=== PATIENT | male | born 1980 | race Caucasian/White ===

== ENCOUNTER → 2024-05-25 | Outpatient (CLI) | payer BC ==
--- NOTE | 2024-05-25 08:00 | US ---
EXAMINATION TYPE: US abdomen complete DATE OF EXAM: 05/25/2024 COMPARISON: NONE CLINICAL INDICATION: Male, 43 years old with history of R10.9 Unspecified abd pain; Intermittent RUQ pain since february; Patient denies any other signs, symptoms, or relevant history TECHNIQUE: Grayscale and color Doppler imaging of the abdomen was performed. FINDINGS: EXAM MEASUREMENTS: Liver Length: 15.8 cm Gallbladder Wall: 0.2 cm CBD: 0.4 cm, color Doppler imaging was utilized to isolate the common bile duct for measurement. Spleen: 10.4 x 4.1 x 4.8 cm Right Kidney: 9.6 x 4.7 x 5.5 cm Left Kidney: 12.1 x 6.1 x 6.2 cm PIPE STRAIGHTENER NOTES: Pancreas: Body and tail obscured by bowel gas Liver: Increased attenuation, no dilated ducts, masses or cysts. Gallbladder: wnl Evidence for sonographic Martinez's sign: No CBD: wnl Spleen: wnl Right Kidney: wnl, No hydronephrosis, calculi or masses seen Left Kidney: wnl, No hydronephrosis, calculi or masses seen Upper IVC: wnl Abd Aorta: wnl The liver is mildly hyperechoic without focal lesion. The intrahepatic portion of the IVC and proxim al abdominal aorta are within normal limits. There is no evidence of cholelithiasis. Common bile du ct is unremarkable. The visualized portions of the pancreas are homogenous. The spleen is unremarka ble. Kidneys are symmetric and free of hydronephrosis. No renal lesions are seen. IMPRESSION: 1. No ultrasound evidence for acute process. 2. Mild hepatic steatosis. [facility], , 05/25/2024 7:57 AM
== END | disposition home or self-care (01) ==
LOC: RADUSWWP 07:23
PROVIDERS: ATTEND Internal Medicine Gastroenterology
DX: K76.0 Fatty (change of) liver, not elsewhere classified (principal)
CPT/HCPCS: 76700

== ENCOUNTER → 2024-07-19 | Day surgery (SDC) | payer BC ==
[2024-07-18 09:04] VITALS: BMI 32.1
[~2024-07-19] MED LIST: LIDOCAINE 1% INJ 10MG/ML (20 ML MDV) ONE; PROPOFOL 10 MG/ML 20 ML VIAL IV ONE
[2024-07-19] MEDS: IV FLUID CONTINUATION 1,000 ML IV ONE (06:49)
[2024-07-19 06:59] VITALS: TEMP 97.3
[2024-07-19] MEDS: LACTATED RINGERS 1,000 ML IV SCH (06:59)
[2024-07-19 08:14] VITALS: BP 157/92; PULSE 73; RESP 18
--- NOTE | 2024-07-19 08:19 | P.PCN ---
Date of Procedure: 07/19/24 Procedure(s) Performed: Brief history: Patient is a pleasant 43-year-old white male scheduled for an elective upper endoscopy as well as colonoscopy as a part of evaluation of diffuse abdominal pain and change in bowel habits for the last 5 months duration Procedure performed: Esophagogastroduodenoscopy with biopsy Colonoscopy Preoperative diagnosis: Diffuse abdominal pain Change in bowel habits Anesthesia: MAC Procedure: After informed consent was obtained from the patient was brought into the end oscopy unit and IV sedation was administered by anesthesia under continuous monitoring. Initially upper endoscopy was done. The Olympus GF 160 video endoscope was inserted inserted into the mouth and esophagus intubated without any difficulty and was gradually advanced into the stomach and duodenum and carefully examined. 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 Mucosa of the second part of the duodenum appeared normal. The scope was then withdrawn into the stomach adequately insufflated with air and upon careful examination the antrum had patchy areas of erythema consistent with gastritis and biopsies were done from this area. Mucosa of the body, cardia and fundus appeared normal. The scope was then withdrawn into the esophagus. The GE junction was located at 40 cm to the incisors. It appeared regular with mild erythema of the GE junction consistent with LA grade A reflux esophagitis. Rest of the esophagus appeared normal. Patient tolerated the procedure well. At this time the patient continued to remain sedation. Initial digital rectal examination was normal. Olympus CF 160 video colonoscope was then inserted into the rectum and gradually advanced to the cecum without any difficulty. Careful examination was performed as the scope was gradually being withdrawn. The prep was excellent. Terminal ileum was intubated and 20 cm visualized and appeared normal. The cecum, ascending colon, transverse colon, descending colon, sigmoid colon and rectum appeared normal. Retroflexion was performed in the rectum and no lesions were noted. Patient tolerated the procedure well. Impression: 1. Upper endoscopy revealed mild antral gastritis and LA grade A reflux esophagitis 2. Colonoscopy was within normal limits with no evidence of colorectal neoplasia Recommendations: Findings of this examination were discussed with the patient as well as his family. He was advised to follow-up with the biopsy results. Recommended repeat screening colonoscopy in 10 years. Follow-up in the office in 2 weeks.
== END ==
LOC: ORWHC2ENDO 06:24
PROVIDERS: ATTEND Internal Medicine Gastroenterology
DX: K31.89 Other diseases of stomach and duodenum (principal); K29.70 Gastritis, unspecified, without bleeding; K21.00 Gastro-esophageal reflux disease with esophagitis, without bleeding; R19.4 Change in bowel habit
CPT/HCPCS: 45378; 43239; J2003; J2704; 88305